=== PATIENT | male | born 1955 | race Caucasian/White ===

== ENCOUNTER 2017-05-16 07:52 | Observation (INO) | payer OTHER ==
[2017-05-14 16:26] LABS: BASOPHILS % 0.5 % (0.0-1.0); EOSINOPHILS # (AUTO) 0.1 (0.0-0.4); EOSINOPHILS % 1.1 % (0.0-6.0); HEMATOCRIT 34.7 % (38.2-49.6); HEMOGLOBIN 11.3 g/dL (14.0-18.0); LYMPHOCYTES # (AUTO) 2.7 (1.0-3.2); LYMPHOCYTES % 30.4 % (18.0-39.1); MEAN CORPUSCULAR HEMOGLOBIN 28.2 pg (28-32); MEAN CORPUSCULAR HGB CONC 32.6 g/dL (31-35); MEAN CORPUSCULAR VOLUME 86.5 fL (81-99); MONOCYTES # (AUTO) 0.7 (0.2-0.8); MONOCYTES % 7.5 % (4.4-11.3); NEUTROPHILS # (AUTO) 5.3 (2.1-6.9); NEUTROPHILS % 60.2 % (38.7-80.0); PLATELET COUNT 260 x10e3/uL (140-360); RED BLOOD COUNT 4.01 x10e6/uL (4.3-5.7); RED CELL DISTRIBUTION WIDTH 14.1 % (11.7-14.4)
--- NOTE | 2017-05-14 16:28 | Diagnostic Imaging Report ---
PROCEDURE: Frontal and lateral views of the chest. COMPARISON: None. INDICATIONS: PRE-OPERATIVE CHEST X-RAY FOR SURGERY FINDINGS: Lines/tubes: None. Lungs: The lungs are well inflated and clear. There is no evidence of pneumonia or pulmonary edema. Pleura: There is no pleural effusion or pneumothorax. Heart and mediastinum: The heart and the mediastinum are normal. Bones: No acute bony abnormality. IMPRESSION: 1. No acute cardiopulmonary abnormalities. Adrian Lopez M.D. Dictated by: Adrian Lopez M.D. on 05/14/2017 at 16:27 Electronically approved by: Adrian Lopez M.D. on 05/14/2017 at 16:27
[2017-05-14 16:40] LABS: ANION GAP 11.9 mmol/L (8-16); CALCIUM 9.5 mg/dL (8.4-10.2); CREATININE, SERUM 1.26 mg/dL (0.72-1.25); POTASSIUM 3.9 mmol/L (3.5-5.1)
[~2017-05-16] VITALS: Ht 180.3 cm; Wt 98.4 kg
[~2017-05-16 07:52] MED LIST: ATORVASTATIN CA10 MG PO; CEFTRIAXONE SOD 1 GM VIAL ONE; FLOMAX0.4 MG PO; HYDROCHLOROTH12.5 MG; METFORMIN HCL500 M2 PO; TRULICITY; [UNRECOGNIZED DRUG - OTHER]
--- OUTSIDE RECORDS SUMMARY | 2017-05-16 07:54 | XMS REPORT ---
[facility] Address Unknown Phone Unavailable Care Team Providers Care Postal Supervisor Name Role Phone VANESSA HOBBS Unavailable Unavailable Problems This patient has no known problems. Allergies, Adverse Reactions, Alerts This patient has no known allergies or adverse reactions. Medications This patient has no known medications. Results Test Description Test Time Test Comments Text Results Atomic Results Result Comments CHEST 2 VIEWS [place] [address] Patient Name: ROSE MOTA MR #: [id number] : 1955 Age/Sex: 61/M Req #: [id number] Adm Physician: Ordered by: VANESSA HOBBS MD Report #: [id number] Location: OR Room/Bed: Procedure: [id number] DX/CHEST 2 VIEWS Exam Date: 05/14/17 Exam Time: 1600 REPORT STATUS: Signed PROCEDURE: Frontal and lateral views of the chest. COMPARISON: None. INDICATIONS: PRE-OPERATIVE CHEST X- RAY FOR SURGERY FINDINGS: Lines/tubes: None. Lungs: The lungs are well inflated and clear. There is no evidence of pneumonia or pulmonary edema. Pleura: There is no pleural effusion or pneumothorax. Heart and mediastinum: The heart and the mediastinum are normal. Bones: No acute bony abnormality. IMPRESSION: 1. No acute cardiopulmonary abnormalities. Augusto Lopez M.D. Dictated by : Augusto Lopez M.D. on 05/14/2017 at 16:27 Electronically approved by: Augusto Lopez M.D. on 05/14/2017 at 16:27 Dictated By : AUGUSTO LOPEZ MD 26 Transcribed By: JOSE on 05/14/171626 COPY TO: VANESSA HOBBS MD
--- OUTSIDE RECORDS SUMMARY | 2017-05-16 07:54 | XMS REPORT | Clinical Summary ---
Author Author [facility] Address Unknown Phone Unavailable Care Team Providers Care Director Of Software Development Name Role Phone Asked, Pcp PCP Unavailable Allergies No Known Allergies Current Medications Prescription Sig. Disp. Refills Start End Date Status Date tamsulosin (FLOMAX) 0.4 Take 1 capsule (0.4 mg 30 capsule 0 03/28/19 04/27/19 mg capsule,extended total) by mouth daily for 18 18 release 24hr 30 days. ciprofloxacin (CIPRO) 500 Take 1 tablet (500 mg 14 tablet 0 04/02/19 04/09/19 MG tablet total) by mouth 2 (two) 18 18 times a day for 7 days. acetaminophen-codeine Take 1-2 tablets by mouth 20 tablet 0 04/02/19 04/12/19 (TYLENOL WITH CODEINE #3) every 6 (six) hours as 18 18 300-30 mg per tablet needed for moderate pain for up to 10 days. Active Problems Not on file Encounters Date Type Specialty Care Team Description 05/01/2017 Emergency Emergency Medicine Lory Bonilla-Margy Ji MD Rob catheter problem, initial encounter (Primary Dx) 04/02/2017 Emergency Emergency Medicine Philip Mandujano MD Urinary tract infection without hematuria, site unspecified (Primary Dx); Urinary retention 03/28/2017 Emergency Emergency Medicine Nathaniel Reis MD Urinary retention (Primary Dx) after 05/15/2016 Social History Tobacco Use Types Packs/Day Years Used Date Never Smoker Smokeless Tobacco: Never Used Alcohol Use Drinks/Week oz/Week Comments Yes occasionally Sex Assigned at Date Recorded Not on file Last Filed Vital Signs Vital Sign Reading Time Taken Blood Pressure 147/67 05/01/2017 2:48 PM VETERINARY NURSE Pulse 86 05/01/2017 2:48 PM VETERINARY NURSE Temperature 36.9 C (98.5 F) 05/01/2017 2:48 PM VETERINARY NURSE Respiratory Rate 20 05/01/2017 2:48 PM VETERINARY NURSE Oxygen Saturation 99% 05/01/2017 2:48 PM VETERINARY NURSE Inhaled Oxygen - - Concentration Weight - - Height 180.3 cm (5' 11") 05/01/2017 2:48 PM VETERINARY NURSE Body Mass Index - - Plan of Treatment Not on file Results * Gram stain (05/01/2017 3:35 PM) Only the most recent of 2 results within the time period is included. Component Value Ref Range Gram stain result No WBC's Occasional Gram positive cocci in pairs Comment: Specimen Information Specimen Source: Urine Specimen Site: Catheterized Specimen Performing Laboratory Urine - Catheterized [facility] DEPARTMENT OF PATHOLOGY AND GENOMIC MEDICINE [address] [place] [address] * Urine culture (05/01/2017 3:35 PM) Only the most recent of 3 results within the time period is included. Component Value Ref Range Urine culture isolate Enterococcus faecalis >10-5 cfu/ml The performance characteristics of this assay on this isolate were validated by the Microbiology Laboratory at [facility]. This source has not been approved by the U.S. Food and Drug Administration. The results are not intended to be used as the sole means for clinical diagnosis or patient management. The Microbiology Laboratory is authorized under the clinical Laboratory Improvement Amendments of 1988 (CLIA-88) to perform high complexity testing. The performance characteristics of this assay on this isolate were validated by the Microbiology Laboratory at [facility]. This source has not been approved by the U.S. Food and Drug Administration. The results are not intended to be used as the sole means for clinical diagnosis or patient management. The Microbiology Laboratory is authorized under the clinical Laboratory Improvement Amendments of 1988 (CLIA-88) to perform high complexity testing. This organism is Vancomycin Sensitive. (A) Comment: Specimen Information Specimen Source: Urine Specimen Site: Catheterized Specimen Performing Laboratory Urine - Catheterized [facility] DEPARTMENT OF PATHOLOGY AND GENOMIC MEDICINE [address] [place] [address] Organism Antibiotic Method Susceptibility Enterococcus faecalis Ampicillin FRANKY 1 mcg/mL: Susceptible Enterococcus faecalis Nitrofurantoin FRANKY <=16 mcg/mL: Susceptible Enterococcus faecalis Levofloxacin FRANKY <=1 mcg/mL: Susceptible Enterococcus faecalis Linezolid FRANKY <=1 mcg/mL: Susceptible Enterococcus faecalis Minocycline FRANKY >8 mcg/mL: Resistant Enterococcus faecalis Tetracycline FRANKY >8 mcg/mL: Resistant Enterococcus faecalis Vancomycin FRANKY 2 mcg/mL: Susceptible * Urinalysis screen and microscopy, with reflex to culture (05/01/2017 3:34 PM) Only the most recent of 3 results within the time period is included. Component Value Ref Range Specimen site Catheterized Color, UA Yellow Appearance, UA Sl Cloudy Specific gravity, UA 1.020 1.001 - 1.035 pH, UA 7.0 5.0 - 8.5 Protein, UA Trace (A) Negative Glucose, UA Negative Negative Ketones, UA Negative Negative Bilirubin, UA Negative Negative Blood, UA Moderate (A) Negative Nitrite, UA Negative Negative Urobilinogen, UA <2.0 <2.0 Leukocyte esterase, UA Small (A) Negative Epithelial cells, UA <1 /HPF WBC, UA 5 (H) 0 - 1 /HPF RBC, UA 25 (H) 0 - 1 /HPF Bacteria, UA Moderate (A) None seen Yeast, UA None seen Yeast with pseudohyphae, None seen UA Specimen Performing Laboratory Urine DEPARTMENT OF PATHOLOGY AND GENOMIC MEDICINE, [address] [place] [address] * Lactic acid, syringe (03/28/2017 9:08 AM) Component Value Ref Range Lactic acid, syringe 1.2 0.5 - 2.2 mmol/L Specimen Performing Laboratory Blood [facility] DEPARTMENT OF PATHOLOGY AND GENOMIC MEDICINE [address] [place] [address] * Estimated GFR (03/28/2017 9:08 AM) Component Value Ref Range GFR Non Af Amer 28 (A) mL/min/1.73 m2 GFR Af Amer 34 (A) mL/min/1.73 m2 Comment: Chronic kidney disease: <60 mL/min/1.73m2 Kidney failure: <15 mL/min/1.73m2 The estimated GFR is calculated from the IDMS-traceable Modification of Diet in Renal Disease Equation. The accuracy of the calculation is poor when the creatinine is normal. Calculated values >90 mL/min/1.73m2 are not reported. This equation has not been validated in children (<18 years), women, the elderly (>70 years), or ethnic groups other than Caucasians and Americans. Specimen Performing Laboratory Plasma specimen [facility] OF PATHOLOGY AND GENOMIC MEDICINE [address] [place] [address] * CBC with platelet and differential (03/28/2017 9:08 AM) Component Value Ref Range WBC 10.29 4.50 - 11.00 k/uL RBC 4.35 (L) 4.40 - 6.00 m/uL HGB 12.3 (L) 14.0 - 18.0 g/dL HCT 38.1 (L) 41.0 - 51.0 % MCV 87.6 82.0 - 100.0 fL MCH 28.3 27.0 - 34.0 pg MCHC 32.3 31.0 - 37.0 g/dL RDW - SD 44.8 37.0 - 55.0 fL MPV 10.8 8.8 - 13.2 fL Platelet count 231 150 - 400 k/uL Nucleated RBC 0.00 /100 WBC Neutrophils 71.5 (H) 39.0 - 69.0 % Lymphocytes 18.7 (L) 25.0 - 45.0 % Monocytes 7.5 0.0 - 10.0 % Eosinophils 1.7 0.0 - 5.0 % Basophils 0.2 0.0 - 1.0 % Immature granulocytes 0.4Comment: "Immature granulocytes" 0.0 - 1.0 % (promyelocytes, myelocytes, metamyelocytes) Specimen Performing Laboratory Blood [facility] DEPARTMENT OF PATHOLOGY AND GENOMIC MEDICINE [address] [place], [place] [id number] * Lipase level (03/28/2017 9:08 AM) Component Value Ref Range Lipase 24 13 - 60 U/L Specimen Performing Laboratory Plasma specimen [facility] DEPARTMENT OF PATHOLOGY AND GENOMIC MEDICINE [address] [place], [place] [id number] * Amylase level (03/28/2017 9:08 AM) Component Value Ref Range Amylase 55 28 - 100 U/L Specimen Performing Laboratory Plasma specimen [facility] DEPARTMENT OF PATHOLOGY AND GENOMIC MEDICINE [address] [place], [place] [id number] * Comprehensive metabolic panel (03/28/2017 9:08 AM) Component Value Ref Range Sodium 144 135 - 148 mEq/L Potassium 3.7 3.5 - 5.0 mEq/L Chloride 102 98 - 112 mEq/L CO2 27 24 - 31 mEq/L Anion gap 15 7 - 15 mEq/L Comment: Starting from June , anion gap calculation no longer incorporates potassium. Please note the change. BUN 28 (H) 6 - 20 mg/dL Creatinine 2.4 (H) 0.7 - 1.2 mg/dL Glucose 134 (H) 65 - 99 mg/dL Calcium 8.9 8.3 - 10.2 mg/dL Protein 7.8 6.3 - 8.3 g/dL Comment: 4.6-7.0 g/dL 1 week 4.4-7.6 g/dL 7 months-1year 5.1-7.3 g/dL 1-2 years 5.6-7.5 g/dL >3 years 6.0-8.0 g/dL 18-150 6.3-8.3 g/dL Albumin 3.7 3.5 - 5.0 g/dL A/G ratio 0.9 0.7 - 3.8 Alkaline phosphatase 72 40 - 129 U/L AST 53 (H) 10 - 50 U/L ALT 52 (H) 5 - 50 U/L Total bilirubin 0.7 0.0 - 1.2 mg/dL Specimen Performing Laboratory Plasma specimen [facility] DEPARTMENT OF PATHOLOGY AND GENOMIC MEDICINE [address] [place] [address] after 05/15/2016 Insurance Payer Benefit Subscriber ID Type Phone Address Plan / Group [employer] xxxxxxxxx[place] [address]
--- OUTSIDE RECORDS SUMMARY | 2017-05-16 07:54 | XMS REPORT | Summary of Care ---
Author Author CHAPARRITA SHAW M.D. Organization Unknown Address Unknown Phone Unavailable Care Team Providers Care Plant Floor Automation Manager Name Role Phone CHAPARRITA SHAW M.D. Unavailable Unavailable Unavailable Unavailable Functional Status Name Dates Details Functional status health issues are not documented Status: Name Dates Details Cognitive status health issues are not documented Status: Problems Name Dates Details Dermatophytosis of nail (110.1, B35.1) Status: Active Need for pneumococcal vaccination (V03.82, Z23) Status: Active Essential (primary) hypertension (401.9, I10) Status: Active Diabetes mellitus (250.00, E11.9) Status: Active Diabetic nephropathy with proteinuria (250.40, E11.21) Status: Active Hyperlipidemia (272.4, E78.5) Status: Active Vitamin D deficiency (268.9, E55.9) Status: Active Medications Name Dates Details Vitamin D3 2000 UNIT Oral Capsule TAKE 1 CAPSULE DAILY * Start : 17-Aug-2011 Active Aspirin 81 MG TABS TAKE 1 TABLET DAILY. * Refills: 0 * Start : 17-Aug-2011 Active BD Pen Mini use as directed for bid injections, ultrafine, short needles * Quantity: 2 Refills: 3 CHAPARRITA SHAW M.D. * Start : 17-Aug-2011 Active 1 EA Box HydroCHLOROthiazide 12.5 MG Oral Capsule TAKE ONE CAPSULE BY MOUTH EVERY DAY * Quantity: 90 Refills: 1 CHAPARRITA SHAW M.D. * Start : 05-Feb-2017 Active Syed Contour Test In Vitro Strip USE 1 STRIP DAILY. * Quantity: 90 Refills: 3 CHAPARRITA SHAW M.D. * Start : 12-Mar-2013 Active Syed Microlet Lancets 1 strip daily * Quantity: 1 Refills: 4 CHAPARRITA SHAW M.D. * Start : 12-Mar-2013 Active 100 EA Package Atorvastatin Calcium 10 MG Oral Tablet TAKE 1 TABLET BY MOUTH EVERY DAY * Quantity: 90 Refills: 2 CHAPARRITA SHAW M.D. * Start : 12-Mar-2013 Active BD Pen Needle Mini U/F 31G X 5 MM USE DIRECTED FOR TWICE DAILY INJECTIONS * Quantity: 1 Refills: 1 CHAPARRITA SHAW M.D. * Start : 10-Nov-2013 Active 100 Miscellaneous Box MetFORMIN HCl ER 500 MG Oral Tablet Extended Release 24 Hour Take 1 tablet every morning and 2 tablets every evening. * Quantity: 1 Refills: 11 CHAPARRITA SHAW M.D. * Start : 08-Mar-2014 Active 270 Tablet Extended Release 24 Hour Bottle Losartan Potassium 100 MG Oral Tablet TAKE 1 TABLET DAILY. * Quantity: 30 Refills: 11 CHAPARRITA SHAW M.D. * Start : 19-May-2016 Active Cialis 5 MG Oral Tablet TAKE DIRECTED. * Quantity: 30 Refills: 11 CHAPARRITA SHAW M.D. * Start : 16-Nov-2016 Active Tamsulosin HCl - 0.4 MG Oral Capsule TAKE 1 CAPSULE DAILY * Refills: 3 CHAPARRITA SHAW M.D. * Start : 10-May-2017 Active Bydureon 2 MG Subcutaneous Pen-injector inject 2mg weekly * Quantity: 3 Refills: 3 CHAPARRITA SHAW M.D. * Start : 13-May-2017 Active 4 x 1 Pre-filled Pen Syringe Pen Allergies and Adverse Reactions Name Dates Details Lisinopril TABS (Allergy) Reaction: Cough Status: Active Procedures Procedure Dates Details Procedures not documented Immunization Name Dates Details Pneumovax 23 25 MCG/0.5ML Injection Injectable Lot #: [id number] on: 01-Apr-2015 Family History Name Dates Details Family history of Acute Myocardial Infarction (V17.3) Comments: Family History Status: Active Family history of Diabetes Mellitus (V18.0) Comments: Family History Status: Active Name Dates Details Family history of Nicotine Dependence Status: Active Social History Name Dates Details - Status: Name Dates Details Never smoker Vital Signs Date Test Result Details :49 BP Systolic 134 mm[Hg] Status: Comments: Location: E; Position: Sitting BP Diastolic 77 mm[Hg] Status: Comments: Location: E; Position: Sitting Weight 217.2 lb Status: Body Mass Index Calculated 30.29 kg/m2 Status: Body Surface Area Calculated 2.18 m2 Status: Temperature 98.3 f Status: Comments: Method: Oral Heart Rate 73 /min Status: Respiration Rate 18 /min Status: Results Date Description Value Details :11 [QL] CBC (INCLUDES DIFF/PLT) WBC 6.8 {K/CMM} Range: 3.7-10.4 RBC 4.43 {M/CMM} (Below low threshold) Range: 4.70-6.10 Hgb 12.3 g/dl (Below low threshold) Range: 14.0-18.0 Hct 37.8 % (Below low threshold) Range: 42.0-54.0 MCV 85.3 fL Range: 80.0-94.0 MCH 27.7 pg Range: 27.0-31.0 MCHC 32.5 g/dl Range: 32.0-36.0 RDW 14.6 % (Above high threshold) Range: 11.5-14.5 Platelet 262 {K/CMM} Range: 133-450 Mean Platelet Volume 9.3 fL Range: 7.4-10.4 :11 [QL] Differential Segmented Neutrophils 63.3 % Range: 45.0-75.0 Monocytes 7.5 % Range: 2.0-12.0 Lymphocytes 27.3 % Range: 20.0-40.0 Eosinophils 1.4 % Range: 0.0-4.0 Basophils 0.5 % Range: 0.0-1.0 Segs-Bands # 4.3 {K/CMM} Range: 1.5-8.1 Lymphocytes # 1.9 {K/CMM} Range: 1.0-5.5 Monocytes # 0.5 {K/CMM} Range: 0.0-0.8 Eosinophils # 0.1 {K/CMM} Range: 0.0-0.5 :11 [QLH] CMP W/EGFR Sodium Level 140 {mEq/l} Range: 135-145 Potassium Level 4.3 {mEq/l} Range: 3.5-5.1 Chloride Level 106 {mEq/l} Range: 95-109 Carbon Dioxide 31 {mEq/l} Range: 24-32 AGAP 7.3 {mEq/l} (Below low threshold) Range: 10.0-20.0 Glucose Lvl 114 mg/dl (Above high threshold) Range: 70-99 Comments: Adult reference range values reflect the clinical guidelinesof the [place] [employer]. Creatinine Lvl 1.40 mg/dl Range: 0.50-1.40 Blood Urea Nitrogen 24 mg/dl (Above high threshold) Range: 7-22 BUN/Creatinine Ratio 17 Range: 6-25 Total Protein 8.0 g/dl Range: 6.4-8.4 Albumin Lvl 4.1 g/dl Range: 3.5-5.0 Globulin 3.9 g/dl Range: 2.7-4.2 A/G Ratio 1.1 Range: 0.7-1.6 Calcium Level Total 9.2 mg/dl Range: 8.5-10.5 ALT 40 u/l Range: 0-65 AST 20 u/l Range: 0-37 Alk Phos 63 u/l Range: 39-136 Bili Total 0.5 mg/dl Range: 0.2-1.3 eGFR 63 {ML/MIN/1.7} Comments: The eGFR is calculated using the CKD-EPI formula. In most young, healthyindividuals the eGFR will be >90 mL/min/1.73m2. The eGFR declines with age. AneGFR of 60-89 may be normal in some populations, particularly the elderly, forwhom the CKD-EPI formula has not been extensively validated. Use of the eGFR isnot recommended in the following populations: Individuals with unstable creatinine concentrations, including patients and those with serious co-morbid conditions.Patients with extremes in muscle mass or diet.The data above are obtained from the National Kidney Disease Education Program(NKDEP) which additionally recommends that when the eGFR is used in patientswith extremes of body mass index for purposes of drug dosing, the eGFR shouldbe multiplied by the estimated BMI. :11 [QL] LIPID PANEL Chol 133 mg/dl Range: <=199 Trig 55 mg/dl Range: <=149 HDL Cholesterol 49 mg/dl (Below low threshold) Range: >=61 CHD Risk 2.71 (Below low threshold) Range: 4.00-7.30 LDL 73 mg/dl Range: <=99 VLDL 11 :11 [QL] VITAMIN B12 Vitamin B12 Level 711 pg/ml Range: 254-1320 :11 [PENDING SALE TO [facility]] TSH, 3RD GENERATION W/REFLEX TO FT4 TSH 1.870 {uIU/ml} Range: 0.360-3.740 54-Wvx-[id number]:11 [QLH] HEMOGLOBIN A1c Hemoglobin A1c 6.7 % (Above high threshold) Range: <=5.6 [id number]-Bgn-80870:11 [QL] VITAMIN D, 25-HYDROXY, LC/MS/MS Vitamin D, 25-OH, Total 45.9 ng/ml Range: 30.0-100.0 Comments: Reference range is based on recommendations in the [employer]ocrine[employer] Clinical Practice Guideline (J Clin Endocrinol Ndcpr7068;96:3003-1389) Plan of Care Name Dates Details Planned Observations Planned Goals not documented Planned Encounters Appointment; CHAPARRITA SHAW M.D. On: 08-Nov-2017 8:45 Interventions Provided Medication Changes* Bydureon 2 MG Subcutaneous Pen-injector - Start Instructions Name Dates Details Instructions not documented Encounters Appointment; CHAPARRITA SHAW M.D. Encounter Diagnosis: Problem not documented On: 04-Nov-2015 14:00 Appointment; CHAPARRITA SHAW M.D. Encounter Diagnosis: Problem not documented On: 18-May-2016 9:15 Appointment; CHAPARRITA SHAW M.D. Encounter Diagnosis: Problem not documented On: 16-Nov-2016 8:45 Appointment; CHAPARRITA SHAW M.D. Encounter Diagnosis: Problem not documented On: 10-May-2017 8:30
[2017-05-16] MEDS ORDERED: BELLADONNA/OPIUM 60 MG SUPP PR ONE (09:34)
[2017-05-16] MEDS ORDERED: FENTANYL CITRATE/PF 100MCG/2 ML INJ ONE ×2 (11:13→18:32)
--- OUTSIDE RECORDS SUMMARY | 2017-05-16 11:59 | XMS REPORT | Clinical Summary ---
Author Author [facility] Address Unknown Phone Unavailable Care Team Providers Care Fisher Trap Name Role Phone Asked, Pcp PCP Unavailable [...] Description 05/01/2017 Emergency Emergency Medicine Lory Bonilla-Margy iJ MD Rob catheter problem, initial encounter (Primary [...] Taken Blood Pressure 147/67 05/01/2017 2:48 PM CLINICAL INFORMATICS EDUCATOR Pulse 86 05/01/2017 2:48 PM CLINICAL INFORMATICS EDUCATOR Temperature 36.9 C (98.5 F) 05/01/2017 2:48 PM CLINICAL INFORMATICS EDUCATOR Respiratory Rate 20 05/01/2017 2:48 PM CLINICAL INFORMATICS EDUCATOR Oxygen Saturation 99% 05/01/2017 2:48 PM CLINICAL INFORMATICS EDUCATOR Inhaled Oxygen - - Concentration Weight - - Height 180.3 cm (5' 11") 05/01/2017 2:48 PM CLINICAL INFORMATICS EDUCATOR Body Mass Index - - Plan of Treatment Not on file Results * Gram stain (05/01/2017 3:35 PM) Only the most recent of 2 results within the time period is included. Component Value Ref Range Gram stain result No WBC's Occasional Gram positive cocci in pairs Comment: Specimen Information Specimen Source: Urine Specimen Site: Catheterized Specimen Performing Laboratory Urine - Catheterized [facility] DEPARTMENT OF PATHOLOGY AND GENOMIC MEDICINE [address] [place] [address] * Urine culture (05/01/2017 3:35 PM) Only the most recent of 3 results within the time period is included. Component Value Ref Range Urine culture isolate Enterococcus faecalis >10-5 cfu/ml The performance characteristics of this assay on this isolate were validated by the Microbiology Laboratory at [facility]. This source has not been approved by [...] were validated by the Microbiology Laboratory at [facility]. This source has not been approved by [...] Catheterized Specimen Performing Laboratory Urine - Catheterized [facility] DEPARTMENT OF PATHOLOGY AND GENOMIC MEDICINE [address] [place] [address] Organism Antibiotic Method Susceptibility Enterococcus faecalis Ampicillin [...] Urine DEPARTMENT OF PATHOLOGY AND GENOMIC MEDICINE, [address] [place] [address] * Lactic acid, syringe (03/28/2017 9:08 AM) Component Value Ref Range Lactic acid, syringe 1.2 0.5 - 2.2 mmol/L Specimen Performing Laboratory Blood [facility] DEPARTMENT OF PATHOLOGY AND GENOMIC MEDICINE [address] [place] [address] * Estimated GFR (03/28/2017 9:08 AM) Component [...] and Americans. Specimen Performing Laboratory Plasma specimen [facility] OF PATHOLOGY AND GENOMIC MEDICINE [address] [place] [address] * CBC with platelet and differential (03/28/2017 [...] (promyelocytes, myelocytes, metamyelocytes) Specimen Performing Laboratory Blood [facility] DEPARTMENT OF PATHOLOGY AND GENOMIC MEDICINE [address] [place], [place] [phone] * Lipase level (03/28/2017 9:08 AM) Component Value Ref Range Lipase 24 13 - 60 U/L Specimen Performing Laboratory Plasma specimen [facility] DEPARTMENT OF PATHOLOGY AND GENOMIC MEDICINE [address] [place], [place] [phone] * Amylase level (03/28/2017 9:08 AM) Component Value Ref Range Amylase 55 28 - 100 U/L Specimen Performing Laboratory Plasma specimen [facility] DEPARTMENT OF PATHOLOGY AND GENOMIC MEDICINE [address] [place], [place] [phone] * Comprehensive metabolic panel (03/28/2017 9:08 AM) [...] 1.2 mg/dL Specimen Performing Laboratory Plasma specimen [facility] DEPARTMENT OF PATHOLOGY AND GENOMIC MEDICINE [address] [place] [address] after 05/15/2016 Insurance Payer Benefit Subscriber ID Type Phone Address Plan / Group [employer] xxxxxxxxx[place] [address]
[2017-05-16] MEDS: HYDROCODONE/APAP 5MG-325MG TAB PO PRN ×2 (12:55→20:46)
[2017-05-16] MEDS ORDERED: SODIUM CHLORIDE 0.45% 1,000 ML IV SCH (13:00)
[2017-05-16] MEDS: GENTAMICIN 80MG/NS 100 ML 100 ML IV SCH ×2 (14:13→22:00)
[2017-05-16 14:49] VITALS: BP 139/75
[2017-05-16 16:24] VITALS: BP 117/60
[2017-05-16 16:25] VITALS: BP 117/60
[2017-05-16] MEDS ORDERED: EPHEDRINE SULFATE INJ 50 MG/10 ML SYR ONE (18:16)
[2017-05-16] MEDS ORDERED: ONDANSETRON HCL INJ 2 MG/ML VIAL ONE (18:16)
[2017-05-16] MEDS ORDERED: DEXAMETHASONE SOD PHOS INJ 4 MG/ML VIAL ONE (18:16)
[2017-05-16] MEDS ORDERED: LIDOCAINE HCL 2% LOCAL INJ 5 ML SDV VIAL INJ ONE (18:16)
[2017-05-16] MEDS ORDERED: PROPOFOL IV EMULSION 10 MG/ML 20 ML VIAL ONE (18:16)
[2017-05-16] MEDS ORDERED: SEVOFLURANE INHAL SOLN 250 ML PEN BTL ONE (18:16)
[2017-05-16] MEDS ORDERED: MIDAZOLAM HCL 2 MG/2 ML VIAL ONE (18:32)
[2017-05-17 04:00] VITALS: BP 104/55
[2017-05-17] MEDS: GENTAMICIN 80MG/NS 100 ML 100 ML IV SCH ×2 (06:00→13:17)
[2017-05-17 06:16] LABS: ANION GAP 12.5 mmol/L (8-16); CALCIUM 8.6 mg/dL (8.4-10.2); CREATININE, SERUM 1.27 mg/dL (0.72-1.25); POTASSIUM 3.5 mmol/L (3.5-5.1)
[2017-05-17 08:34] VITALS: BP 125/71
[2017-05-17 12:08] VITALS: BP 121/59
[2017-05-17 12:20] VITALS: BP 121/59
--- NOTE | 2017-05-21 08:44 | Operative Report ---
DATE OF PROCEDURE: May 16, 2017 PREOPERATIVE DIAGNOSIS: Urinary retention. POSTOPERATIVE DIAGNOSIS: Urinary retention. OPERATIVE PROCEDURES PERFORMED 1. Cystoscopy. 2. Transurethral resection of prostate. ANESTHESIA: General anesthesia. ESTIMATED BLOOD LOSS: 200 mL. INDICATIONS: Mr. Dk Reinoso is a 61-year-old gentleman who presented recently with urinary retention. Despite maximum medical therapy, he was unable to void on his own. He now presents for definitive surgical management of this problem. PROCEDURE IN DETAIL: The patient was brought into the operating room and placed in the supine position. After initiation of general anesthesia, he was placed in the dorsal lithotomy position, and prepped and draped in the usual sterile fashion. Cystourethroscopy was performed using a 21-Belgian cystoscope. The anterior and posterior urethra were noted to be normal. The prostate revealed evidence of trilobar hyperplasia with moderate elevation of the median bar. The prostate, however, was short. The bladder was entered without difficulty. Upon entrance into the bladder, the ureteral orifices were in their normal anatomical position and produced clear efflux. There were grade 2 trabeculations with early cellule formation noted. There were no mucosal lesions identified. The bladder was left full, and the cystoscope and its sheath were removed. A 22-Belgian resectoscope sheath was then placed in a retrograde fashion. The [employer] resectoscope was used to perform the procedure. Beginning at the 1 o'clock position and proceeding in a clockwise fashion down to the 6 o'clock position, all the adenomatous tissue between the bladder neck and the vera were resected down to the level of the surgical capsule. No gross penetration or perforation of the capsule occurred during the operation. A similar procedure was performed on the contralateral side beginning at the 11 o'clock position and again ending in the 6 o'clock position. The residual tissue noted on the roof of the gland was then resected free. The [employer] evacuator was used to remove all chips. These were sent to pathology for microscopic analysis. Visualization of the bladder neck from the origin of the vera revealed an open fossa. The bladder was left full, and the cystoscope and its sheath were removed. The patient was noted to have a brisk urinary flow with Coude. A 24-Belgian, 3-way catheter was then placed in a retrograde fashion. The balloon inflated with 45 mL of sterile water. The urinary efflux was noted to be blood-tinged. The patient was returned to the supine position, and started on continuous bladder irrigation. Anesthesia was reversed. He was transferred to a bed and taken to the postanesthesia care unit in good condition. Of note, the needle and instrument count were correct at the conclusion of the case. Job#: [id number] ALICE
== END 2017-05-17 14:36 | disposition home or self-care (01) ==
LOC: OR 07:52 → IMCU 11:56
PROVIDERS: ADMIT Urology; ATTEND Urology
DX: R33.9 Retention of urine, unspecified (principal)
CPT/HCPCS: 36415 ×3; 52630; 71046; 80048 ×2; 82948 ×2; 85025; 88305; 93005; 96367; C1758; G0378 ×2; J0696; J1100; J1580 ×2; J2001; J2250; J2405